=== PATIENT | male | born 1965 | race Two or more races ===

== ENCOUNTER 2020-05-29 11:39 | Outpatient (REF) | payer OTHER, SELFPAY ==
[2020-05-29 12:01] LABS: COVID-19 Test Negative (Negative); IDNOW Serial# 55D5AD1C
== END 2020-05-29 11:40 | disposition home or self-care (01) ==
LOC: HO.EMPCOV 11:39
PROVIDERS: Visit Provider Internal Medicine
DX: Z20.822 Contact with and (suspected) exposure to COVID-19 (principal)
CPT/HCPCS: 36415; 87635; C9803

== ENCOUNTER 2020-06-22 11:14 | Outpatient (REF) | payer OTHER, SELFPAY ==
--- NOTE | ~2020-06-22 | XR_ITS ---
EXAMINATION: XR CHEST CLINICAL INFORMATION: Other disorders of lung COMPARISON: None TECHNIQUE: 2 views of the chest were obtained. FINDINGS: No significant abnormality is noted involving the heart, lungs, mediastinum, bony thorax or soft tissues. XR/XR chest 2V IMPRESSION: Unremarkable examination.
--- NOTE | 2020-06-22 17:42 | PFT_ITS ---
Forced vital capacity, moderately decreased. FEV1 is slightly decreased. FEV1/FVC ratio is normal. [id number] normal. MVV moderately decreased. Post bronchodilator therapy, there is no significant change. Total lung capacity and residual volume are moderately decreased. Diffusion capacity slightly decreased. CONCLUSION: Restrictive pulmonary disorder, moderately severe. No evidence of obstructive airway disorder. No significant response to bronchodilator therapy. Patti Cabral MD MSB/MODL / [id number]
== END 2020-06-22 11:15 | disposition home or self-care (01) ==
LOC: HO.RESP 11:14
PROVIDERS: Visit Provider Hospitalist
DX: J98.4 Other disorders of lung (principal); R06.00 Dyspnea, unspecified
CPT/HCPCS: 71046; 94060; 94727; 94729

== ENCOUNTER → 2020-07-06 08:26 | Outpatient (BNVA) | payer OTHER, SELFPAY | PROVIDERS: PCP Psychiatry & Neurology Psychiatry; Visit Provider Hospitalist ==

== ENCOUNTER → 2020-07-10 07:16 | Outpatient (REF) | payer OTHER, SELFPAY ==
--- NOTE | 2020-07-10 07:30 | CA_ITS ---
Transthoracic Echocardiogram Amended Patient (Last, First, Middle): David Bhatt, Gender: Male Date of : 1965 Age: 55 Procedure Date: 07/10/2020 Procedure Type: Transthoracic Echocardiogram Location: OP Height: 180.34 cm Weight: 86.18 kg BSA: 2.06 m2 Heart Rate: bpm BP: 120 / 70 mmHg Director Inpatient Headache Program: DEEPA Barry MD: Yong Orourke MD School Based Therapist: Yong Orourke MD Symptoms: R06.00 - Dyspnea, unspecified Study Quality: Fair/contrast ECG Rhythm: Sinus Conclusions: - 1. Normal LV systolic and diastolic function 2. Trivial aortic regurgitation 3. Normal RV systolic pressure 4. No gross pericardial effusion Findings Procedure Information Contrast agent, definity, is being given per protocol without apparent complications. Left Ventricle Normal left ventricular size, thickness, and systolic function. The visually estimated ejection fraction is between 60-65%. Diastolic function is normal for age. Right Ventricle Normal right ventricular cavity size and systolic function. Atria Both atria are normal in size. Interatrial shunt cannot be excluded. Aortic Valve The aortic valve structure and function is likely normal. There is no aortic valve stenosis. There is trace (trivial) aortic valve regurgitation. Mitral Valve Normal mitral valve structure and function. There is no mitral valve regurgitation. There is no mitral valve stenosis. Pulmonic Valve The pulmonic valve was not well visualized. Tricuspid Valve Normal tricuspid valve structure. There is trace tricuspid valve regurgitation. The right ventricular systolic pressure is normal. The right ventricular systolic pressure is 24 mmHg. Normal right atrial pressure. There is no evidence of pulmonary hypertension. Great Vessels All visible segments of the aorta are normal in size. The pulmonary artery was not well visualized. Venous The inferior vena cava is normal in size and collapses greater than 50% with inspiration. Pericardium/Pleural There is no evidence of pericardial effusion. Prior Study Comparison No prior study available for comparison. Measurements 2D Linear Measurements IVSd: 0.98 0.6-0.9/0.6-1.0 cm LVIDd: 4.40 3.9-5.3/4.2-5.9 cm LVIDs: 2.82 2.0-3.6 cm LVPWd: 0.98 0.7-1.1 cm Ao Root: 3.22 2.1-3.5 cm LV Mass: 178.36 67-162/88-224 g LVOT Diam: 1.98 3.0+(-)1.3 cm 2D Volumes LA Vol: 31.38 Mitral Valve MV Pk E: 0.93 MV PK A: 0.54 MV Decel Time: 177.14 E/A: 1.73 E'Lateral: 0.08 E'Medial: 0.07 Decel [place]: 5.22 Aortic Valve AoV Pk Dar: 1.55 AoV Mn Dar: 1.12 AoV VTI: 0.36 AoV Pk Grad: 9.55 Aov Mn Grad: 5.33 LVOT LVOT Pk Dar: 0.96 LVOT Mn Dar: 0.69 LVOT VTI: 0.25 LVOT Pk Grad: 3.66 LVOT Mn Grad: 2.07 LVOT Diam: 1.98 LVOT Area: 3.08 Diastolic Function MV Pk E: 0.93 MV Pk A: 0.54 E/A: 1.73 E'Medial: 0.07 E' Laterial: 0.08 Tricuspid Valve TR Pk Dar: 2.26 TR Pk Grad: 20.50 RA Press: 3.00 RVSP: 24.00 Great Vessels Aorta Ao Root-2D: 3.22 2.0-3.7 cm Ao Asc: 3.41 2.1-3.4 cm Ao Arch: 2.99 Updated in Other Vendor System with Status of Final Yong Orourke MD electronically signed on 07/10/2020 8:57:48 AM with status of Final
[2020-07-10 08:41] LABS: MANUAL DIFF FLAG NO
[2020-07-10 08:46] LABS: Basophils Percent Auto 0.6 % (0-2); Eosinophils Absolute Auto 0.2 X10*3/uL (0.0-0.4); Eosinophils Percent Auto 3.2 % (0-4); Hematocrit 45.8 % (42-52); Hemoglobin 15.4 g/dl (14.0-18.0); Imm Gran Abs Auto 0.03 X10*3/uL (0.00-0.03); Imm Gran Pct Auto 0.6 % (0.0-0.4); Lymphocytes Absolute Auto 2.2 X10*3/uL (1.2-4.9); Lymphocytes Percent Auto 43.6 % (20-40); Mean Corpuscular HGB Conc 33.6 g/dl (31.0-36.0); Mean Corpuscular Volume 92.2 fL (80-98); Mean Platelet Volume 11.2 fL (9.4-12.4); Monocytes Absolute Auto 0.5 X10*3/uL (0.1-1.2); Monocytes Percent Auto 8.9 % (2-11); Neutrophils Absolute Auto 2.2 X10*3/uL (2.0-8.3); Neutrophils Percent Auto 43.1 % (45-73); Platelet Count 178 X10*3/uL (160-400); Red Blood Count 4.97 X10*6/uL (4.60-5.80); Red Cell Distribution Width 12.7 % (11.0-16.0); White Blood Count 5.1 X10*3/uL (4.8-10.8)
[2020-07-10 09:08] LABS: Troponin-I High Sensitivity 6.7 ng/L (<3.5-35.0)
[2020-07-10 09:12] LABS: Anion Gap 12 (12-20); Blood Urea Nitrogen 12 mg/dL (9-16); Calcium 8.8 mg/dL (8.4-10.2); Carbon Dioxide 25 mmol/L (22-29); Chloride 106 mmol/L (96-108); Estimated Glomerular Filt Rate > 60; Glucose Random 98 mg/dL (60-115); Potassium 4.6 mmol/L (3.3-5.1); Sodium 138 mmol/L (135-145)
[2020-07-10 09:13] LABS: D Dimer < 200 NG/ML
[2020-07-10 09:39] LABS: Cholesterol 195 mg/dL; HDL Cholesterol 36 mg/dL; LDL Cholesterol Calculated 134 mg/dl; Triglycerides 125 mg/dL
[2020-07-10 09:46] LABS: Erythrocyte Sedimentation Rate 3 MM/HR (0-15)
[2020-07-10 10:02] LABS: TSH reflex Free T4 0.96 uIU/mL (0.32-4.0); Vitamin D 25-OH Total 13.2 ng/mL (>30)
== END ==
LOC: HO.CARD 07:16
PROVIDERS: Absent Provider Hospitalist; PCP Internal Medicine; Visit Provider Internal Medicine Cardiovascular Disease
DX: R06.00 Dyspnea, unspecified (principal); R00.0 Tachycardia, unspecified; J98.4 Other disorders of lung
CPT/HCPCS: 36415; 80048; 80061; 82306; 84443; 84484; 85025; 85379; 85652; 93306; Q9957

== ENCOUNTER 2020-08-03 07:14 | Outpatient (REF) | payer OTHER, SELFPAY ==
--- NOTE | ~2020-08-03 | CT_ITS ---
EXAMINATION: CT CHEST WITHOUT CONTRAST CLINICAL INFORMATION: Other disorder lung COMPARISON: Previous chest x-ray June 2020 TECHNIQUE: Multidetector volumetric CT imaging of the chest was done. Axial MIP volume rendering provided. Sagittal and coronal reformatted images were obtained. This CT examination was performed using dose optimization techniques as appropriate, variously including the following: *Automated exposure control *Adjustment of mA and/or kV according to patient size (this includes techniques or standardized protocols for targeted exams where dose is matched to indication/reason for exam; i.e. extremities or head) *Use of iterative reconstruction technique DLP: 190 mGy-cm FINDINGS: FINE GRADER: Unremarkable LUNGS: There is a 3 mm right lower lobe nodule axial image 301 series 7. There is a 4 mm right lower lobe nodule axial image 334 series 7. There is a 3 mm perivascular right lower lobe nodule axial image 355 series 7. There is a 3 mm left lower lobe nodule axial image 327 series 7. There is a 1 to 2 mm left lower lobe nodule axial image 328 series 7. No evidence of emphysema, interstitial lung disease or bronchiectasis is seen. There is no endobronchial or endotracheal lesion. MEDIASTINUM: There is minimal coronary artery calcification. The mediastinum is otherwise normal. PLEURA: There is no pleural effusion. No pleural mass or thickening. AXILLA: No lymphadenopathy. UPPER ABDOMEN: There is a mild diverticulosis of the colon. OSSEOUS STRUCTURES: There are mild degenerative changes of the spine. CT/CT chest wo IV con IMPRESSION: Small pulmonary nodules. According to the UPDATED 2017 Fleischner Society recommendations, the advised follow-up imaging for less than 6 mm nodule: Low risk, no chest CT follow-up and high risk, optional chest CT follow-up in one year.
== END 2020-08-03 07:15 | disposition home or self-care (01) ==
LOC: HO.CT 07:14
PROVIDERS: Visit Provider Hospitalist
DX: J98.4 Other disorders of lung (principal); R06.00 Dyspnea, unspecified
CPT/HCPCS: 71250

== ENCOUNTER → 2022-07-05 08:20 | Outpatient (BNVA) | payer OTHER, SELFPAY | PROVIDERS: PCP Internal Medicine; Visit Provider Psychiatry & Neurology Neurology | DX: Z13.89 Encounter for screening for other disorder (principal) ==

== ENCOUNTER 2022-07-25 09:11 | Outpatient (REF) | payer OTHER, SELFPAY ==
--- NOTE | ~2022-07-25 | US_ITS ---
EXAMINATION: US EXTRACRANIAL CAROTID DUPLEX, BILATERAL CLINICAL INFORMATION: Transient visual disturbance. Rule out vertebrobasilar insufficiency. Amaurosis fugax. COMPARISON: None available. TECHNIQUE: Real-time ultrasound and Doppler techniques (integrating B-mode 2-D vascular images, Doppler spectral analysis and color-flow Doppler imaging) were utilized to interrogate the extracranial carotid arteries, the vertebral arteries and proximal subclavian arteries bilaterally. The degree of stenosis is determined by criteria similar to NASCET. FINDINGS: Right Side: 1. There is no atherosclerotic plaque seen in the bifurcation/proximal ICA region. 2. The common carotid artery PSV proximally is 109 cm/s and distally 102 cm/s. 3. The proximal internal carotid artery velocities are 104 cm/s systolic and 25 cm/s diastolic. 4. The proximal external carotid artery PSV is 111 cm/s. 5. The vertebral artery shows antegrade flow. 6. The subclavian artery waveforms are normal. Left Side: 1. There is no atherosclerotic plaque seen in the bifurcation/proximal ICA region. 2. The common carotid artery PSV proximally is 104 cm/s and distally 100 cm/s. 3. The proximal internal carotid artery velocities are 71 cm/s systolic and 27 cm/s diastolic. 4. The proximal external carotid artery PSV is 106 cm/s. 5. The vertebral artery shows antegrade flow. 6. The subclavian artery waveforms are normal. US/US carotid duplex BI IMPRESSION: 1. RIGHT: Normal right internal carotid artery without atherosclerotic plaque or hemodynamically significant stenosis. 2. LEFT: Normal left internal carotid artery without atherosclerotic plaque or hemodynamically significant stenosis. 3. Bilateral vertebral artery waveforms demonstrate normal antegrade and diastolic flow with no evidence of vertebrobasilar insufficiency.
== END 2022-07-25 09:12 | disposition home or self-care (01) ==
LOC: HO.US 09:11
PROVIDERS: Visit Provider Psychiatry & Neurology Neurology
DX: H53.129 Transient visual loss, unspecified eye (principal)
CPT/HCPCS: 93880

== ENCOUNTER 2022-08-02 08:22 | Outpatient (REF) | payer OTHER, SELFPAY ==
[2022-08-02 08:32] LABS: MANUAL DIFF FLAG NO
[2022-08-02 10:04] LABS: Basophils Percent Auto 0.5 % (0-2); Eosinophils Absolute Auto 0.2 X10*3/uL (0.0-0.4); Eosinophils Percent Auto 2.9 % (0-4); Hematocrit 47.4 % (42.0-52.0); Hemoglobin 16.2 g/dl (14.0-18.0); Imm Gran Abs Auto 0.01 X10*3/uL (0.00-0.03); Imm Gran Pct Auto 0.2 % (0.0-0.4); Lymphocytes Absolute Auto 2.9 X10*3/uL (1.2-4.9); Mean Corpuscular HGB Conc 34.2 g/dl (31.0-36.0); Mean Corpuscular Hemoglobin 30.9 pg (27.0-33.0); Mean Corpuscular Volume 90.5 fL (80.0-98.0); Monocytes Absolute Auto 0.6 X10*3/uL (0.1-1.2); Monocytes Percent Auto 8.4 % (2-11); Neutrophils Absolute Auto 2.9 x10*3/uL (2.0-8.3); Platelet Count 201 X10*3/uL (160-400); Red Blood Count 5.24 X10*6/uL (4.60-5.80); Red Cell Distribution Width 12.9 % (11.0-16.0); White Blood Count 6.6 X10*3/uL (4.8-10.8)
[2022-08-02 11:16] LABS: Alanine Aminotransferase 24 U/L (0-40); Albumin Level 4.4 g/dL (3.5-5.0); Alkaline Phosphatase 68 U/L (39-117); Anion Gap 13 (12-20); Aspartate Amino Transferase 24 U/L (5-37); Bilirubin Total 1.1 mg/dL (0.0-1.0); Blood Urea Nitrogen 12 mg/dL (9-16); Calcium 9.3 mg/dL (8.4-10.2); Carbon Dioxide 24 mmol/L (22-29); Chloride 107 mmol/L (96-108); Cholesterol 209 mg/dL; Estimated Glomerular Filt Rate > 60; Glucose Random 96 mg/dL (60-115); HDL Cholesterol 34 mg/dL; LDL Cholesterol Calculated 154 mg/dl; Potassium 4.7 mmol/L (3.3-5.1); Sodium 139 mmol/L (135-145); Total Protein 7.5 g/dL (6.5-8.0); Triglycerides 108 mg/dL
[2022-08-02 11:27] LABS: Folate 8.9 ng/mL (> or = 4.0); PSA,Total (Free>4and<10) 1.42 ng/mL (0.00-4.00); TSH reflex Free T4 1.35 uIU/mL (0.32-4.0); Vitamin B12 347 pg/mL (200-900)
[2022-08-02 11:36] LABS: Reflex LDLD? No
[2022-08-08 12:39] LABS: Vitamin D 25-OH, D2 <4 ng/mL; Vitamin D 25-OH, D3 17 ng/mL; Vitamin D 25-OH, Total 17 ng/mL (30-100)
== END 2022-08-02 08:23 | disposition home or self-care (01) ==
LOC: HO.LAB 08:22
PROVIDERS: Visit Provider Psychiatry & Neurology Neurology
DX: H53.8 Other visual disturbances (principal); Z12.5 Encounter for screening for malignant neoplasm of prostate
CPT/HCPCS: 36415; 80053; 80061; 82306; 82607; 82746; 84153; 84443; 85025

== ENCOUNTER → 2023-05-08 12:40 | Outpatient (BNVA) | payer OTHER, SELFPAY | PROVIDERS: PCP Internal Medicine; Visit Provider Psychiatry & Neurology Neurology ==

== ENCOUNTER 2023-12-04 08:17 | Outpatient (REF) | payer OTHER, SELFPAY ==
[2023-12-04 08:34] LABS: MANUAL DIFF FLAG NO
[2023-12-04 08:52] LABS: Basophils Percent Auto 0.4 % (0-2); Eosinophils Absolute Auto 0.1 X10*3/uL (0.0-0.4); Eosinophils Percent Auto 1.6 % (0-4); Hematocrit 47.3 % (42.0-52.0); Hemoglobin 16.1 g/dl (14.0-18.0); Imm Gran Abs Auto 0.01 X10*3/uL (0.00-0.03); Imm Gran Pct Auto 0.2 % (0.0-0.4); Lymphocytes Absolute Auto 2.4 X10*3/uL (1.2-4.9); Lymphocytes Percent Auto 43.7 % (20-40); Mean Corpuscular Hemoglobin 30.7 pg (27.0-33.0); Mean Corpuscular Volume 90.3 fL (80.0-98.0); Mean Platelet Volume 11.1 fL (9.4-12.4); Monocytes Absolute Auto 0.5 X10*3/uL (0.1-1.2); Monocytes Percent Auto 8.3 % (2-11); Neutrophils Absolute Auto 2.5 x10*3/uL (2.0-8.3); Neutrophils Percent Auto 45.8 % (45-73); Platelet Count 182 X10*3/uL (160-400); Red Blood Count 5.24 X10*6/uL (4.60-5.80); Red Cell Distribution Width 12.3 % (11.0-16.0); White Blood Count 5.5 X10*3/uL (4.8-10.8)
[2023-12-04 09:21] LABS: Alanine Aminotransferase 29 U/L (0-40); Albumin Level 4.2 g/dL (3.5-5.0); Alkaline Phosphatase 59 U/L (39-117); Anion Gap 9 (12-20); Aspartate Amino Transferase 24 U/L (5-37); Bilirubin Total 1.2 mg/dL (0.0-1.0); Blood Urea Nitrogen 10 mg/dL (9-16); Calcium 9.4 mg/dL (8.4-10.2); Carbon Dioxide 27 mmol/L (22-29); Chloride 106 mmol/L (96-108); Cholesterol 190 mg/dL (<200); Estimated Glomerular Filt Rate > 60; Glucose Random 105 mg/dL (60-115); HDL Cholesterol 33 mg/dL (>40); LDL Cholesterol Calculated 136 mg/dL (<100); Potassium 4.2 mmol/L (3.3-5.1); Sodium 138 mmol/L (135-145); Total Protein 7.5 g/dL (6.5-8.0); Triglycerides 107 mg/dL (<150)
[2023-12-04 09:37] LABS: TSH reflex Free T4 1.44 uIU/mL (0.32-4.0)
== END 2023-12-04 08:18 | disposition home or self-care (01) ==
LOC: HO.LAB 08:17
PROVIDERS: PCP Internal Medicine; Visit Provider Internal Medicine
DX: Z00.00 Encounter for general adult medical examination without abnormal findings (principal); R00.2 Palpitations; H92.03 Otalgia, bilateral; G43.109 Migraine with aura, not intractable, without status migrainosus; Z68.28 Body mass index [BMI] 28.0-28.9, adult; Z12.5 Encounter for screening for malignant neoplasm of prostate
CPT/HCPCS: 36415; 80053; 80061; 84153; 84443; 85025